=== PATIENT | female | born 1975 | race Two or more races ===

== ENCOUNTER 2017-09-15 08:57 | Outpatient (CLI) | payer OTHER ==
[~2017-09-15 08:57] MED LIST: ALDOMET250 MG; NORVASC5 MG PO; TOPROL XL25 MG PO
== END 2017-09-15 09:04 | disposition home or self-care (01) ==
LOC: LAB 08:57
DX: Z00.00 Encounter for general adult medical examination without abnormal findings (principal); I10 Essential (primary) hypertension; E03.8 Other specified hypothyroidism; E78.2 Mixed hyperlipidemia; N39.0 Urinary tract infection, site not specified; Z11.4 Encounter for screening for human immunodeficiency virus [HIV]; Z12.11 Encounter for screening for malignant neoplasm of colon; E55.9 Vitamin D deficiency, unspecified; Z21 Asymptomatic human immunodeficiency virus [HIV] infection status; R79.89 Other specified abnormal findings of blood chemistry

== ENCOUNTER → 2017-09-25 10:20 | Outpatient (CLI) | payer OTHER | END | disposition home or self-care (01) | LOC: LAB 10:20 | DX: Z00.00 Encounter for general adult medical examination without abnormal findings (principal); I10 Essential (primary) hypertension; E03.8 Other specified hypothyroidism; E78.2 Mixed hyperlipidemia; N39.0 Urinary tract infection, site not specified; Z11.4 Encounter for screening for human immunodeficiency virus [HIV]; Z12.11 Encounter for screening for malignant neoplasm of colon; E55.9 Vitamin D deficiency, unspecified; Z21 Asymptomatic human immunodeficiency virus [HIV] infection status; R79.9 Abnormal finding of blood chemistry, unspecified; R79.89 Other specified abnormal findings of blood chemistry ==

== ENCOUNTER 2017-11-21 15:00 | Outpatient (CLI) | payer OTHER | END 2017-11-21 15:25 | disposition home or self-care (01) | LOC: MAMO-SONO 15:00 | DX: N60.11 Diffuse cystic mastopathy of right breast (principal); N60.12 Diffuse cystic mastopathy of left breast; N64.59 Other signs and symptoms in breast; N64.9 Disorder of breast, unspecified; Z12.31 Encounter for screening mammogram for malignant neoplasm of breast ==

== ENCOUNTER 2025-09-09 11:19 | Day surgery (SDC) | payer OTHER ==
[~2025-09-09] VITALS: Ht 149.9 cm; Wt 47.6 kg
--- NOTE | 2025-09-09 10:54 | NUR ---
PACIENTE FEMENINA ALERTA Y ORIENTADA X 3 VIENE POR SANGRADO VAGINAL. MEDINA GINECOLOGA LA ENVIO. SE MIDEN SIGNOS VITALES Y SE UBICA
[~2025-09-09 11:19] MED LIST changes: +LABETALOL HCL200 MG
[2025-09-09] MEDS ORDERED: RINGERS SOLUTION,LACTATED 1,000 ML IV ONE (11:45)
[2025-09-09 12:17] LABS: BASO % 0.6 % (0.1-1.2); EOS # 0.17 (0.04-0.54); EOS % 2.6 % (0.7-7.0); LYMPH # 1.38 (1.18-3.74); LYMPH % 21.3 % (19.3-53.1); MEAN PLATELET VOLUME 8.70 fl (9.4-12.4); MONO # 0.43 (0.24-0.82); MONO % 6.6 % (4.7-12.5); NEUT # 4.45 (1.56-6.13); NEUT % 68.7 % (34.0-71.1); RED CELL DISTRIBUTION WIDTH 12.3 % (11.6-14.4)
--- NOTE | 2025-09-09 12:20 | NUR ---
SE EDUCA A PACIENTE SOBRE TRATAMIENTO MEDICO EL CUAL REFIERE ENTENDER, SE REALIZA EILEEN DE MUESTRAS Y SE ADMINISTRA MEDICAMENTOS GUCCI ORDEN MEDICA.
[2025-09-09 12:46] LABS: INR 1.0
[2025-09-09 12:47] LABS: BUN CREA RATIO 26.0 (7.0-25.0); CREATININE SERUM 0.72 mg/dL (0.55-1.02); GFR 86.45; GLUCOSE FASTING 89.0 mg/dL (65-100); OSMOLALITY SERUM 287.0 MOSM/KG (275-295)
[2025-09-09 14:13] LABS: COVID-19 AG NEGATIVE (NEGATIVE)
[2025-09-09] MEDS ORDERED: KETOROLAC TROMETHAMINE 30 MG VIAL IV ONE (15:15)
[2025-09-09] MEDS ORDERED: ONDANSETRON HCL 2 MG/ML VIAL IV ONE (15:15)
[2025-09-09] MEDS ORDERED: POVIDONE-IODINE 118 ML BOTT TOP ONE (16:30)
[2025-09-09 21:07] VITALS: BP 132/71; O2SAT 99
== END 2025-09-09 21:14 | disposition home or self-care (01) ==
LOC: CIR.AMB 11:19 → ER 11:19 → O/R 13:20 → ER 13:20 → CIR.AMB 21:14 → O/R 21:14
PROVIDERS: ATTEND Student in an Organized Health Care Education/Training Program
DX: N93.8 Other specified abnormal uterine and vaginal bleeding (principal); N72 Inflammatory disease of cervix uteri; N84.0 Polyp of corpus uteri